=== PATIENT | male | born 1960 | race Caucasian/White ===

== ENCOUNTER 2021-05-11 10:40 | Outpatient (RCR) | payer BC, SELFPAY | END 2021-05-11 10:41 | disposition home or self-care (01) | LOC: ANHOT 10:40 | PROVIDERS: PCP Nurse Practitioner Family; Visit Provider Nurse Practitioner Family | DX: M77.01 Medial epicondylitis, right elbow (principal) | CPT/HCPCS: 99199 ==

== ENCOUNTER 2024-12-01 11:12 | Emergency (ER) | payer OTHER, SELFPAY ==
[2024-12-01 11:34] VITALS: BP 121/79; PULSE 85; RESP 14; TEMP 36.9; O2SAT 98
--- NOTE | 2024-12-01 11:46 | ECG_ITS ---
Test Date: 2024-12-01 11:55:58 Measurements Intervals Royal Rate: 84 P: 42 SC: 165 QRS: 12 QRSD: 102 T: 34 QT: 346 QTc: 411 Interpretive Statements SINUS RHYTHM NORMAL ECG No previous ECG available for comparison Electronically Signed On 12-01-2024 15:38:11 CDT by Shawn Du D.O.
--- NOTE | 2024-12-01 11:52 | ED_ITS ---
HPI - General Adult General Chief complaint: Upper Respiratory Infection Stated complaint: Sore Throat/Heartburn Time Seen by Provider: 12/01/24 11:50 Source: patient, RN notes reviewed and old records reviewed Mode of arrival: ambulatory Limitations: no limitations History of Present Illness HPI narrative: 64 year old male who presents to [facility] care with complaints of sore throat and heartburn with some epigastric discomfort for the past 2 weeks. Patient reports that for the past day or 2 the symptoms have been worse and when he bend over he has like acid reflux into his esophagus making his throat sore. Patient denies any difficulty with his swallowing and reports no episodes of nausea or vomiting. Patient reports no shortness of breath or any radiation of pain to his jaw, back or arm, denies any episodes of sweating. Patient reports that there he does have hypertension and there is cardiac history in his family. Patient reports that he took one dose of Pepto Bismol for his symptoms in past 2 weeks. Patient reports no tobacco use and rare alcohol use,is obese. MD complaint: upper epigastric pain Onset (ago): week(s) (2 weeks with increased symptoms 1-2 days.) Location: abdomen (epigastric) Severity scale (1-10): 3 Quality: burning and other (pressure, soreness) Treatments prior to arrival: other (one dose of Pepto Bismol) Related Data Home Medications ?Medication ?Instructions ?Recorded ?Confirmed ?Last Taken ?Type atorvastatin 80 mg tablet mg 12/01/24 Unknown History losartan 100 mg tablet mg 12/01/24 Unknown History metformin 500 mg tablet,extended mg PO 12/01/24 Unkno wn History release 24 hr sertraline 100 mg tablet mg 12/01/24 Unknown History terbinafine HCl 250 mg tablet mg 12/01/24 Unknown His tory Allergies Allergy/AdvReac Type Severity Reaction Status Date / Time No Known Allergies Allergy Verified 12/01/24 11:31 Review of Systems Review of Systems: CONSTITUTIONAL: Denies fever, chills, or sweats. EYES: Denies visual changes, redness, or discharge. ENT: Denies rhinorrhea, congestion, sore throat from acid reflux,no otalgia. CARDIOVASCULAR: Denies chest pain, palpitations, or edema. RESPIRATORY: Denies cough or dyspnea. GASTROINTESTINAL: Reports epigastric abdominal pain,no nausea, vomiting, or diarrhea. GENITOURINARY: Denies dysuria or hematuria. SKIN: Denies rash or itching. MUSCULOSKELETAL: Denies back pain, joint pain, or myalgia. NEUROLOGIC: Denies headache, numbness, or weakness. PSYCHIATRIC: Denies anxiety or depression. All systems reviewed & are unremarkable except as noted in HPI and below PMFSH Past Medical History Medical History (Updated 12/02/24 @ 19:28 by Corin Ruiz NP) Fracture, ankle Pneumonia 2014 Diabetes type 2 Hyperlipidemia Hypertension Family History Family History (Updated 12/02/24 @ 19:18 by Corin Ruiz NP) Father Hypertension Cerebrovascular accident Heart disease Sibling Family history of diabetes mellitus in first degree relative Social History Social History (Updated 12/02/24 @ 19:16 by Corin Ruiz NP) Smoking status: Never smoker Alcohol intake: current Alcohol use details: rare use maybe 1-2 every 2 weeks Substance use type: does not use Living arrangements: with family Gender identity (if verbalized by the patient): Male Comments At time of signature, agree with nursing past medical, surgical, social and family history. There is no relevant family history pertinent to the presenting complaint Exam Narrative: GENERAL: Well-appearing, well-nourished, and in no acute distress. HEAD: Normocephalic, atraumatic. EYES: PERRLA and EOMI. ENT: Nares clear, no rhinorrhea or epistaxis. Mucous membranes moist. NECK: Supple.no lymphadenopathy CHEST: Clear to auscultation. No respiratory distress.no cough or congestion noted SAO2 98% on room air HEART: Regular rate and rhythm. No murmur heard. Normal peripheral pulses. ABDOMEN: Soft, some upper epigastric tenderness,no rigidity,, normal active bowel sounds., abdomen large and rounded EXTREMITIES: Normal range of motion. No edema. SKIN: Warm, dry, no rash. NEURO: No focal deficits. Alert and oriented x3. Course Course Emergency Course: Patient is aware of diagnosis, understands and agrees to treatment plan.? Anticipatory guidance given.? Patient agrees to follow-up as directed and is aware of reasons to seek care at the emergency department. Portions of this record may have been created with voice recognition software Level of Care: Express Care Visit Vital Signs Vital signs: Vital Signs Temperature 36.9 C 12/01/24 11:34 Pulse Rate 85 12/01/24 11:34 Respiratory Rate 14 12/01/24 11:34 Blood Pressure 121/79 12/01/24 11:34 Pulse Oximetry 98 12/01/24 11:34 Oxygen Delivery Room Air 12/01/24 11:34 Temperature 36.9 C 12/01/24 11:34 Pulse Rate 85 12/01/24 11:34 Respiratory Rate 14 12/01/24 11:34 Blood Pressure 121/79 12/01/24 11:34 Pulse Oximetry 98 12/01/24 11:34 Oxygen Delivery Room Air 12/01/24 11:34 Reviewed Medical Decision Making MDM Narrative Medical decision making narrative: Exam findings and imaging show no acute concerns or changes; patient is non- toxic appearing and is in no distress.? Patient is appropriate for outpatient treatment and follow-up Differential Diagnosis Differential Diagnosis: acid reflux, GERD,esophageal discomfort Medical Records Medical records reviewed: Yes I reviewed the external patient's medical records. Vital Signs Vital Signs: Vital Signs Temperature 36.9 C 12/01/24 11:34 Pulse Rate 85 12/01/24 11:34 Respiratory Rate 14 12/01/24 11:34 Blood Pressure 121/79 12/01/24 11:34 Pulse Oximetry 98 12/01/24 11:34 Oxygen Delivery Room Air 12/01/24 11:34 Temperature 36.9 C 12/01/24 11:34 Pulse Rate 85 12/01/24 11:34 Respiratory Rate 14 12/01/24 11:34 Blood Pressure 121/79 12/01/24 11:34 Pulse Oximetry 98 12/01/24 11:34 Oxygen Delivery Room Air 12/01/24 11:34 reviewed ECG Data EKG #1: Attestation: I personally reviewed and interpreted this ECG as follows: ECG completion date: 12/01/24 ECG completion time: 11:56 Prior ECG tracings: not available for review Interpretation: sinus rhythm without ectopy. GA 165ms, QRS 102ms, rate 84,QT 346ms EKG Interpretation: normal rate and sinus rhythm Critical Care Time Critical Care Time Critical Care Time: No Discharge Plan Discharge Clinical Impression: GERD (gastroesophageal reflux disease) Qualifiers: Esophagitis presence: esophagitis presence not specified Qualified Code(s): K21.9 - Gastro-esophageal reflux disease without esophagitis Patient Disposition: Home Condition: Stable Instructions: Antibiotic Form, Diet for Stomach Ulcers and Gastritis (ED), GERD (Gastroesophageal Reflux Disease) (ED) Additional Instructions: Avoid eating after 8 PM never lay down after eating Avoid fried, greasy, fatty, fried foods Avoid caffeine, nicotine, and alcohol Medication as directed for nausea and vomiting Sometimes ibuprofen/Aleve can cause increased stomach upset Follow-up with her PCP if continued problems or uncontrolled pain If your symptoms persist, change or worsen significantly before you can contact your personal physician then please, without delay, go to the emergency department for further evaluation. Follow-up with PCP in 7-10 days or sooner if needed follow-up with PCP at your next appointment on December 06 Patient Language: [place] Prescriptions: New pantoprazole [Protonix] 40 mg tablet,delayed release (DR/EC) 40 mg PO HS 42 Days Qty: 42 0RF ondansetron 4 mg tablet,disintegrating 4 mg PO Q8H PRN (Reason: nausea and vomiting) Qty: 14 0RF Rx Instructions: for any nausea or vomiting No Action atorvastatin 80 mg tablet sertraline 100 mg tablet terbinafine HCl 250 mg tablet losartan 100 mg tablet metformin 500 mg tablet extended release 24 hr PO Follow-up/Referrals: PHYSICIAN,PIGMENT PROCESSOR [Primary Care Provider, Internal Medicine] Time of Disposition: 12:33 Quality [place] Coma Scale Eyes: Open Verbal: Oriented and Alert Motor: Follows Commands Marci Coma Total Score: 15
== END 2024-12-01 12:35 | disposition home or self-care (01) ==
PROVIDERS: Emergency Provider Registered Nurse
DX: K21.9 Gastro-esophageal reflux disease without esophagitis (principal); E11.9 Type 2 diabetes mellitus without complications; Z79.84 Long term (current) use of oral hypoglycemic drugs; I10 Essential (primary) hypertension; E78.5 Hyperlipidemia, unspecified
CPT/HCPCS: 93005; 99213; G0463